=== PATIENT | male | born 2000 | race African-American/Black ===

== ENCOUNTER 2025-01-22 01:27 | Emergency (ER) | payer OTHER ==
[~2025-01-22] VITALS: Ht 185.4 cm; Wt 76.4 kg
[2025-01-22] MEDS: FLUORESCEIN OPHTH 1 MG STRIP OU ONE (02:50)
[2025-01-22] MEDS: PROPARACAINE 0.5% OPHTH SOL 15ML OU ONE (02:50)
[2025-01-22] MEDS ORDERED: ERYT5OIN25 OP (03:31)
[2025-01-22] MEDS: ERYTHROMYCIN OPHTH OINT OU ONE (03:33)
[2025-01-22 03:52] VITALS: BP 127/74; TEMP 97.7; O2SAT 97
== END 2025-01-22 03:30 | disposition home or self-care (01) ==
LOC: M ED 01:27
DX: H16.133 Photokeratitis, bilateral (principal); Z88.6 Allergy status to analgesic agent; Z91.018 Allergy to other foods; Z79.2 Long term (current) use of antibiotics